=== PATIENT | female | born 1950 | race American Indian/Alaskan Native ===

== ENCOUNTER 2019-01-09 10:18 | Inpatient (IN) | payer OTHER, MEDICARE ==
[2019-01-09 10:19] VITALS: BMI 22.1
[2019-01-09 11:25] LABS: BASO # 0.1 K/uL (0.0-0.2); BASO % 1.2 % (0.0-2.0); EOS # 0.1 K/uL (0.0-0.7); EOS % 2.1 % (0.0-4.0); LYMPH # 2.7 K/uL (1.0-4.3); LYMPH % 43.9 % (20.0-40.0); MEAN CELL VOLUME 93.1 fL (81.0-99.0); MEAN CORPUSCULAR HEMOGLOBIN 31.1 pg (27.0-31.0); MEAN CORPUSCULAR HGB CONC 33.4 g/dL (33.0-37.0); MEAN PLATELET VOLUME 8.1 fL (7.2-11.7); MONO # 0.4 K/uL (0.0-0.8); MONO % 6.4 % (0.0-10.0); NEUT # 2.8 K/uL (1.8-7.0); NEUT % 46.4 % (50.0-75.0); NRBC % 0.1 % (0.0-2.0); RBC 3.86 Mil/uL (3.80-5.20); RED CELL DISTRIBUTION WIDTH 14.5 % (11.5-14.5); WHITE BLOOD COUNT 6.1 K/uL (4.8-10.8)
[2019-01-09 11:35] LABS: PROTHROMBIN TIME 11.2 SECONDS (9.7-12.2)
[2019-01-09 12:04] LABS: BLOOD UREA NITROGEN 14 mg/dL (7-17); CALCIUM 9.9 mg/dl (8.6-10.4); GFR NON-AFRICAN AMERICAN > 60
[2019-01-09 12:05] LABS: ALBUMIN 4.6 g/dL (3.5-5.0); ALT/SGPT 25 U/L (9-52); AST/SGOT 71 U/L (14-36)
[2019-01-09] MEDS ORDERED: Vancomycin 1 GM 1 GM/250 ML BAG IV STA (12:10)
[2019-01-09] MEDS ORDERED: Cefepime 1 GM in Sodium Chloride 0.9% 50 ML IVPB ONE (12:11)
--- NOTE | 2019-01-09 12:13 | C.PDOC ---
History Of Present Illness 68-year-old female presents to the ED for evaluation of left lower leg pain and swelling which began several months ago. Patient states she underwent vein surgery by Dr. Rodriguez 3 years ago. She was evaluated by him 3 days ago and was instructed to present to the ED because they are "going to drain it." Patient denies fever, chills, chest pain, shortness of breath, or recent falls/injuries. Time Seen by Provider: 01/09/19 10:28 Chief Complaint (Nursing): Lower Extremity Problem/Injury History Per: Patient History/Exam Limitations: no limitations Onset/Duration Of Symptoms: Days Current Symptoms Are (Timing): Still Present Additional History Per: Patient Past Medical History Reviewed: Historical Data, Nursing Documentation, Vital Signs Vital Signs: Last Vital Signs Temp 98.2 F 01/09/19 10:24 Pulse 98 H 01/09/19 10:24 Resp 18 01/09/19 10:24 BP 155/84 H 01/09/19 10:24 Pulse Ox 100 01/09/19 10:24 - Medical History PMH: HTN Denies: Chronic Kidney Disease Surgical History: No Surg Hx - [facility] Procedures ATTACH PEDICLE GRAFT NEC (06/11/14) EXCIS DEBRIDE OF WOUND, INFECT, OR BURN (05/16/14) NONEXCIS DEBRID OF WOUND, INFECT, OR BURN (06/11/14) OTHER SKIN & SUBQ I D (05/16/14) Family History: States: Unknown Family Hx - Social History Hx Tobacco Use: Yes Hx Alcohol Use: No Hx Substance Use: No - Immunization History Hx Tetanus Toxoid Vaccination: Yes Hx Influenza Vaccination: No Hx Pneumococcal Vaccination: No Review Of Systems Constitutional: Negative for: Fever, Chills Cardiovascular: Negative for: Chest Pain Respiratory: Negative for: Shortness of Breath Musculoskeletal: Positive for: Leg Pain (left lower leg pain and swelling, atraumatic ) Physical Exam - Physical Exam Appears: Well, Non-toxic, No Acute Distress, Other (comfortable ) Skin: Normal Color, Warm, Dry Head: Normacephalic Eye(s): bilateral: Normal Inspection Oral Mucosa: Moist Neck: Supple Cardiovascular: Rhythm Regular Respiratory: Normal Breath Sounds, No Rales, No Rhonchi, No Wheezing Gastrointestinal/Abdominal: Normal Exam, Bowel Sounds, Soft, No Tenderness Extremity: Normal ROM, No Calf Tenderness, Capillary Refill (< 2 sec all digits ), Other (left lower leg is moderately swollen, erythematous and tender to palpation. no fluctuance or induration ) Extremity: Bilateral: Normal ROM Pulses: Left Dorsalis Pedis: Normal, Right Dorsalis Pedis: Normal Neurological/Psych: Oriented x3, Normal Sensation ED Course And Treatment - Laboratory Results Result Diagrams: 01/10/19 07:26 01/10/19 07:26 Lab Results: PT 11.2 SECONDS (9.7-12.2) 01/09/19 11:11 INR 1.0 01/09/19 11:11 APTT 32 SECONDS (21-34) 01/09/19 11:11 Total Bilirubin 0.6 mg/dL (0.2-1.3) 01/09/19 11:40 AST 71 U/L (14-36) H 01/09/19 11:40 ALT 25 U/L (9-52) 01/09/19 11:40 Alkaline Phosphatase 80 U/L (38-126) 01/09/19 11:40 Total Protein 9.2 g/dL (6.3-8.3) H 01/09/19 11:40 Albumin 4.6 g/dL (3.5-5.0) 01/09/19 11:40 Globulin 4.6 gm/dL (2.2-3.9) H 01/09/19 11:40 Albumin/Globulin Ratio 1.0 (1.0-2.1) 01/09/19 11:40 O2 Sat by Pulse Oximetry: 100 (on RA) Pulse Ox Interpretation: Normal Progress Note: Blood work, venous doppler ordered and reviewed. Patient given IV Vancomycin and IV Cefepime. Doppler neg for acute DVT. - Physician Consult Information Physician Contacted: Tami Dixon Outcome Of Conversation: Discussed patient with PMD, he would like patient admitted under Dr. Antony. Spoke with Dr. Antony, who agrees with admission for left leg cellulitis. Dr. Rodriguez surgical consult entered. Disposition - Disposition Disposition: HOSPITALIZED Disposition Time: 12:11 Condition: STABLE - Clinical Impression Clinical Impression: Left leg cellulitis - Scribe Statement The provider has reviewed the documentation as recorded by the Scribe (Haleigh Dixon) Provider Attestation: All medical record entries made by the Scribe were at my direction and personally dictated by me. I have reviewed the chart and agree that the record accurately reflects my personal performance of the history, physical exam, medical decision making, and the department course for this patient. I have also personally directed, reviewed, and agree with the discharge instructions and disposition. Decision To Admit - Pt Status Changed To: Hospital Disposition Of: Inpatient - Admit Certification Admit to Inpatient:: After my assessment, the patient will require hospitalization for at least two midnights. This is because of the severity of symptoms shown, intensity of services needed, and/or the medical risk in this patient being treated as an outpatient. - InPatient: Physician Admission Certification: I certify that this patient requires 2 or more midnights of care for the following reason:: see notes - . Bed Request Type: Regular Admitting Physician: Berkley Antony Patient Diagnosis: Left leg cellulitis
[2019-01-09] MEDS ORDERED: Vancomycin 1 GM 1 GM/250 ML BAG IVPB ONE (12:23)
[2019-01-09] MEDS ORDERED: Cefepime 1 GM in Sodium Chloride 0.9% 100 ML IVPB ONE (12:30)
[2019-01-09] MEDS ORDERED: Bupivacaine 0.25% 20 ML INJ IJ ONE (13:00)
[2019-01-09] MEDS ORDERED: ceFAZolin 1 gm in NS 0 GM/0 ML BAG IVPB ONE (13:00)
[2019-01-09] MEDS ORDERED: Midazolam 2 MG/2 ML VIAL ONE (13:45)
[2019-01-09] MEDS ORDERED: Propofol 10 mg/ml Inj (20 ML) ONE (13:46)
[2019-01-09] MEDS: HYDROmorphone 0.5 mg/0.5 ml ISec IVP PRN ×4 (14:20→14:48)
--- NOTE | 2019-01-09 17:28 | CP.PCM.HP ---
Past Patient History - Past Medical History & Family History Past Medical History?: Yes - Past Social History Smoking Status: Current Some Days Smoker - CARDIAC Hx Hypertension: Yes - PULMONARY Hx Respiratory Disorders: No - NEUROLOGICAL Hx Neurological Disorder: No - HEENT Hx HEENT Problems: No - RENAL Hx Chronic Kidney Disease: No - ENDOCRINE/METABOLIC Hx Endocrine Disorders: No - HEMATOLOGICAL/ONCOLOGICAL Hx Hepatitis C: Yes - INTEGUMENTARY Hx Dermatological Problems: Yes (NON HEALING ULCER LEFT LEG) - MUSCULOSKELETAL/RHEUMATOLOGICAL Hx Falls: No - GASTROINTESTINAL Hx Gastrointestinal Disorders: Yes Hx Bowel Surgery: Yes Other/Comment: explore lap in 1965, [facility] - GENITOURINARY/GYNECOLOGICAL Hx Genitourinary Disorders: Yes Hx Reproductive Disorders: Yes Other/Comment: 13 dilatation and currettage - PSYCHIATRIC Hx Substance Use: No - SURGICAL HISTORY Hx Surgeries: Yes (EXC.AND DRAINAGE LEG ABSCESS) Hx Dilation and Curettage: Yes (13X) Hx Hysterectomy: Yes Hx Tubal Ligation: Yes - ANESTHESIA Hx Anesthesia: Yes Hx Anesthesia Reactions: No Hx Malignant Hyperthermia: No Has any member of the family had a problem w/ anesthesia?: No Meds Allergies/Adverse Reactions: Allergies Allergy/AdvReac Type Severity Reaction Status Date / Time No Known Allergies Allergy Unverified 01/09/19 10:28 Results - Vital Signs Recent Vital Signs: Last Vital Signs Temp 98.3 F 01/09/19 16:05 Pulse 75 01/09/19 16:05 Resp 20 01/09/19 16:05 BP 134/79 01/09/19 16:05 Pulse Ox 98 01/09/19 16:45 - Labs Result Diagrams: 01/09/19 11:11 01/09/19 11:40 Labs: Laboratory Results - last 24 hr 01/09/19 01/09/19 01/09/19 11:11 11:11 11:40 WBC 6.1 RBC 3.86 Hgb 12.0 Hct 35.9 MCV 93.1 MCH 31.1 H MCHC 33.4 RDW 14.5 Plt Count 329 MPV 8.1 Neut % (Auto) 46.4 L Lymph % (Auto) 43.9 H [place] % (Auto) 6.4 Eos % (Auto) 2.1 Baso % (Auto) 1.2 Neut # (Auto) 2.8 Lymph # (Auto) 2.7 [place] # (Auto) 0.4 Eos # (Auto) 0.1 Baso # (Auto) 0.1 PT 11.2 INR 1.0 APTT 32 Sodium 136 Potassium 4.7 Chloride 101 Carbon Dioxide 26 Anion Gap 14 BUN 14 Creatinine 0.8 Est GFR ( Amer) > 60 Est GFR (Non-Af Amer) > 60 Random Glucose 93 Calcium 9.9 Total Bilirubin 0.6 AST 71 H ALT 25 Alkaline Phosphatase 80 Total Protein 9.2 H Albumin 4.6 Globulin 4.6 H Albumin/Globulin Ratio 1.0
[2019-01-09] MEDS: Dextrose 5%/0.45% NS 1,000 ML IV SCH (17:38)
[2019-01-09] MEDS: Oxycodone/Acetaminophen 5/325 mg Tab PO PRN (17:54)
[2019-01-09] MEDS: Naproxen 550 mg Tab PO SCH (20:52)
--- NOTE | 2019-01-09 23:26 | CP.PCM.CON ---
History of Present Illness - History of Present Illness History of Present Illness: discussed on rounds orders written full consukt to follow Past Patient History - Past Medical History & Family History Past Medical History?: Yes - Past Social History Smoking Status: Current Some Days Smoker - CARDIAC Hx Hypertension: Yes - PULMONARY Hx Respiratory Disorders: No - NEUROLOGICAL Hx Neurological Disorder: No - HEENT Hx HEENT Problems: No - RENAL Hx Chronic Kidney Disease: No - ENDOCRINE/METABOLIC Hx Endocrine Disorders: No - HEMATOLOGICAL/ONCOLOGICAL Hx Hepatitis C: Yes - INTEGUMENTARY Hx Dermatological Problems: Yes (NON HEALING ULCER LEFT LEG) - MUSCULOSKELETAL/RHEUMATOLOGICAL Hx Falls: No - GASTROINTESTINAL Hx Gastrointestinal Disorders: Yes Hx Bowel Surgery: Yes Other/Comment: explore lap in 1965, [facility] - GENITOURINARY/GYNECOLOGICAL Hx Genitourinary Disorders: Yes Hx Reproductive Disorders: Yes Other/Comment: 13 dilatation and currettage - PSYCHIATRIC Hx Substance Use: No - SURGICAL HISTORY Hx Surgeries: Yes (EXC.AND DRAINAGE LEG ABSCESS) Hx Dilation and Curettage: Yes (13X) Hx Hysterectomy: Yes Hx Tubal Ligation: Yes - ANESTHESIA Hx Anesthesia: Yes Hx Anesthesia Reactions: No Hx Malignant Hyperthermia: No Has any member of the family had a problem w/ anesthesia?: No Meds Allergies/Adverse Reactions: Allergies Allergy/AdvReac Type Severity Reaction Status Date / Time No Known Allergies Allergy Unverified 01/09/19 10:28 - Medications Medications: Current Medications Docusate Sodium (Colace) 100 mg PO BID [facility] Last Admin: 01/09/19 17:39 Dose: 100 mg Enoxaparin Sodium (Lovenox) 30 mg SC DAILY [facility] Hydrochlorothiazide (Hydrodiuril) 25 mg PO DAILY [facility] Dextrose/Sodium Chloride (Dextrose 5%/0.45% Ns 1000 Ml) 1,000 mls @ 60 mls/hr IV .[id number] [facility] Last Admin: 01/09/19 17:38 Dose: 60 mls/hr Cefepime HCl 1 gm/ Dextrose 50 mls @ 100 mls/hr IVPB Q12H [facility]; Protocol Vancomycin/Sodium Chloride (Vancomycin 1 Gm/Ns 200 Ml) 1 gm in 200 mls @ 133.333 mls/hr IVPB Q12H [facility]; Protocol Stop: 01/15/19 01:01 Naproxen (Anaprox Ds) 550 mg PO BID [facility] Last Admin: 01/09/19 20:52 Dose: 550 mg Oxycodone/Acetaminophen (Percocet 5/325 Mg Tab) 2 tab PO Q4H PRN PRN Reason: Pain, Mild (1-3) Stop: 01/12/19 14:07 Last Admin: 01/09/19 17:54 Dose: 2 tab Pantoprazole Sodium (Protonix Inj) 40 mg IVP DAILY [facility] Results - Vital Signs Recent Vital Signs: Last Vital Signs Temp 98.3 F 01/09/19 16:05 Pulse 75 01/09/19 16:05 Resp 20 01/09/19 16:05 BP 134/79 01/09/19 16:05 Pulse Ox 98 01/09/19 16:45 - Labs Result Diagrams: 01/09/19 11:11 01/09/19 11:40 Labs: Laboratory Results - last 24 hr 01/09/19 01/09/19 01/09/19 11:11 11:11 11:40 WBC 6.1 RBC 3.86 Hgb 12.0 Hct 35.9 MCV 93.1 MCH 31.1 H MCHC 33.4 RDW 14.5 Plt Count 329 MPV 8.1 Neut % (Auto) 46.4 L Lymph % (Auto) 43.9 H [place] % (Auto) 6.4 Eos % (Auto) 2.1 Baso % (Auto) 1.2 Neut # (Auto) 2.8 Lymph # (Auto) 2.7 [place] # (Auto) 0.4 Eos # (Auto) 0.1 Baso # (Auto) 0.1 PT 11.2 INR 1.0 APTT 32 Sodium 136 Potassium 4.7 Chloride 101 Carbon Dioxide 26 Anion Gap 14 BUN 14 Creatinine 0.8 Est GFR ( Amer) > 60 Est GFR (Non-Af Amer) > 60 Random Glucose 93 Calcium 9.9 Total Bilirubin 0.6 AST 71 H ALT 25 Alkaline Phosphatase 80 Total Protein 9.2 H Albumin 4.6 Globulin 4.6 H Albumin/Globulin Ratio 1.0
[2019-01-10] MEDS: Oxycodone/Acetaminophen 5/325 mg Tab PO PRN ×5 (00:27→19:31)
[2019-01-10] MEDS: Vancomycin 1 gm/NS 200 ml 1 GM/200 ML BAG IVPB SCH ×2 (00:40→13:20)
[2019-01-10] MEDS: Dextrose 5%/0.45% NS 1,000 ML IV SCH ×2 (06:25→22:46)
--- NOTE | 2019-01-10 06:41 | OP ---
PROCEDURE DATE: 01/09/2019 PREOPERATIVE DIAGNOSIS: Abscess and phlebitis of the left leg. POSTOPERATIVE DIAGNOSIS: Septic phlebitis of the left leg. PROCEDURE PERFORMED: Wide deep excision of septic phlebitis of the left leg with partial tissue flap closure. SURGEON: Farzad Rodriguez MD ANESTHESIA: General. BLOOD LOSS: 20 mL. POSTOP CONDITION: Stable. INDICATIONS FOR SURGERY: This is a 68-year-old female, presented with a painful infected mass of her left leg, will undergo radical excision of the area with drainage of underlying abscess and debridement. DESCRIPTION OF PROCEDURE: The patient was taken to the operating room, general anesthesia administered. The left leg was prepped and draped. An elliptical incision was made surrounding the indurated area and it was completely excised into the fascia. A septic vein was encountered and surrounding pus was drained and cultured. Bleeding was controlled using a Bovie. The wound was irrigated with copious amounts of saline solution. Partial tissue flap closure was performed at the periphery. Central portion was packed open with saline gauze. The patient tolerated the procedure well, returned to recovery room in stable condition. Farzad Rodriguez MD
[2019-01-10 07:46] LABS: BASO # 0.1 K/uL (0.0-0.2); EOS % 0.5 % (0.0-4.0); HEMOGLOBIN 11.7 g/dL (11.0-16.0); LYMPH # 1.4 K/uL (1.0-4.3); MEAN CELL VOLUME 91.7 fL (81.0-99.0); MEAN CORPUSCULAR HEMOGLOBIN 31.1 pg (27.0-31.0); MEAN CORPUSCULAR HGB CONC 33.9 g/dL (33.0-37.0); MONO # 0.3 K/uL (0.0-0.8); MONO % 4.4 % (0.0-10.0); NEUT # 4.4 K/uL (1.8-7.0); NEUT % 71.1 % (50.0-75.0); RBC 3.76 Mil/uL (3.80-5.20); RED CELL DISTRIBUTION WIDTH 14.2 % (11.5-14.5); WHITE BLOOD COUNT 6.2 K/uL (4.8-10.8)
[2019-01-10 07:50] LABS: ALBUMIN 4.5 g/dL (3.5-5.0); ALT/SGPT 25 U/L (9-52); AST/SGOT 54 U/L (14-36); BLOOD UREA NITROGEN 10 mg/dL (7-17); CALCIUM 9.6 mg/dl (8.6-10.4); GFR NON-AFRICAN AMERICAN > 60
[2019-01-10] MEDS: Naproxen 550 mg Tab PO SCH ×2 (09:51→17:29)
[2019-01-10] MEDS: Enoxaparin 30 mg Syringe SC SCH (09:53)
--- NOTE | 2019-01-10 13:05 | CP.PCM.CON ---
History of Present Illness - History of Present Illness History of Present Illness: 68-year-old female presents to the ED for evaluation of left lower leg pain and swelling which began several months ago. Seen s/p drainage abscess left leg cultures pending' denies fever or chills PMH deniies DM + HTN NKDA Review of Systems - Review of Systems All systems: reviewed and no additional remarkable complaints except - Constitutional Constitutional: absent: As Per HPI, Anorexia, Chills, Daytime Sleepiness, Exces sive Sweating, Fatigue, Fever, Frequent Falls, Headache, Increased Appetite, Lethargy, Malaise, Night Sweats, Snoring, Sleep Apnea, Weight Gain, Weight Loss, Weakness, Other - EENT Eyes: absent: As Per HPI, Blind Spots, Blurred Vision, Change in Vision, Decreas ed Night Vision, Diplopia, Discharge, Dry Eye, Exophthalmos, Floaters, Irritation, Itchy Eyes, Loss of Peripheral Vision, Pain, Photophobia, Requires Corrective Lenses, Sees Flashes, Spots in Vision, Tunnel Vision, Other Visual Disturbances, Loss of Vision, Other Ears: absent: As Per HPI, Decreased Hearing, Ear Discharge, Ear Pain, Tinnitus, Abnormal Hearing, Disequilibrium, Dizziness, Other Nose/Mouth/Throat: absent: As Per HPI, Epistaxis, Nasal Congestion, Nasal Discharge, Nasal Obstruction, Nasal Trauma, Nose Pain, Post Nasal Drip, Sinus Pain, Sinus Pressure, Bleeding Gums, Change in Voice, Dental Pain, Dry Mouth, Dysphagia, Halitosis, Hoarsness, Lip Swelling, Mouth Lesions, Mouth Pain, Odynophagia, Sore Throat, Throat Swelling, Tongue Swelling, Facial Pain, Neck Pain, Neck Mass, Other - Breasts Breasts: absent: As Per HPI, Change in Shape, Mass, Pain, Nipple Discharge, Nipple Inversion, Skin Changes, Swelling, Other - Cardiovascular Cardiovascular: absent: As Per HPI, Acrocyanosis, Chest Pain, Chest Pain at Rest, Chest Pain with Activity, Claudication, Diaphoresis, Dyspnea, Dyspnea on Exertion, Edema, Irregular Heart Rhythm, Pain Radiating to Arm/Neck/Jaw, Leg Edema, Leg Ulcers, Lightheadedness, Orthopnea, Palpitations, Paroxysmal Nocturnal Dyspnea, Pedal Edema, Radiating Pain, Rapid Heart Rate, Slow Heart Rate, Syncope, Other - Respiratory Respiratory: absent: As Per HPI, Cough, Dyspnea, Hemoptysis, Dyspnea on Exertion, Wheezing, Snoring, Stridor, Pain on Inspiration, Chest Congestion, Excessive Mucous Production, Change in Mucous Color, Pain with Coughing, Other - Gastrointestinal Gastrointestinal: absent: As Per HPI, Abdominal Pain, Belching, Bloating, Change in Bowel Habits, Change in Stool Character, Coffee Ground Emesis, Constipation, Cramping, Diarrhea, Dyspepsia, Dysphagia, Early Satiety, Excessive Flatus, Fecal Incontinence, Heartburn, Hematemesis, Hematochezia, Loose Stools, Melena, Nausea, Odynophagia, Temesmus, Vomiting, Other - Genitourinary Genitourinary: absent: As Per HPI, Change in Urinary Stream, Difficulty Urinating, Dysuria, Flank Pain, Hematuria, Pyuria, Nocturia, Urinary Incontinence, Urinary Frequency, Urinary Hesitance, Urinary Urgency, Voiding Freq/Small Amts, Freq UTI, Hx Renal/Bladder Calculi, Hx /Renal Surgery, Bladder Distension, Other - Reproductive: Female Reproductive:Female: absent: As Per HPI, Amenorrhea, Amenorrhea/ Control, Currently Menstual, Cycle <21 Days, Cycle >35 Days, Cycle Variable, Menses 1-7 Days, Menses >/= 8 Days, Menses Variable, Cycle > 4 Weeks Between, No Menses for 6 Months, Heavy Menses, Light Menses, Normal Menses, Spotting Between Cycles, S/P Hysterectomy, Menopausal, Post Menopausal, Premenarche, Abnormal Vaginal Bleeding, Dysmenorrhea, Dyspareunia, Genital Lesions, Genital Pruritis, Pelvic Pain, Prolapse Symptoms, Sexual Dysfunction, Vaginal Discharge, Vaginal Dryness, Vaginal Odor, Vaginal Pruritis, Other - Menstruation Menstruation: absent: As Per HPI, Amenorrhea, Amenorrhea/ Control, Currently Menstual, Cycle <21 Days, Cycle >35 Days, Cycle Variable, Menses 1-7 Days, Menses >/= 8 Days, Menses Variable, Cycle > 4 Weeks Between, No Menses for 6 Months, Heavy Menses, Light Menses, Normal Menses, Spotting Between Cycles, S/P Hysterectomy, Menopausal, Post Menopausal, Premenarche, Abnormal Vaginal Bleeding, Dysmenorrhea, Other - Musculoskeletal Musculoskeletal: As Per HPI - Integumentary Integumentary: As Per HPI, Skin Pain, Wounds - Neurological Neurological: absent: As Per HPI, Abnormal Gait, Abnormal Hearing, Abnormal Move ments, Abnormal Speech, Behavioral Changes, Burning Sensations, Confusion, Convulsions, Disequilibrium, Dizziness, Numbness, Focal Weakness, Frequent Falls, Headaches, Lack of Coordination, Loss of Vision, Memory Loss, Paresthesias, Radicular Pain, Restless Legs, Sensory Deficit, Syncope, Tingling, Tremor, Vertigo, Weakness, Other Visual Disturbances, Other - Psychiatric Psychiatric: absent: As Per HPI, Abnormal Sleep Pattern, Anhedonia, Anxiety, Auditory Hallucinations, Behavioral Changes, Change in Appetite, Change in Libido, Confusion, Depression, Difficulty Concentrating, Hallucinations, Homicidal Ideation, Hopelessness, Irritability, Memory Loss, Mood Swings, Panic Attacks, Paranoia, Suicidal Ideation, Visual Hallucinations, Tactile Hallucinations, Other - Endocrine Endocrine: absent: As Per HPI, Change in Body Appearance, Change in Libido, Cold Intolorance, Deepening of Voice, Excessive Sweating, Fatigue, Flushing, Heat Intolorance, Increase in Ring/Shoe/Hat Size, Palpitations, Polydipsia, Polyphagia, Polyuria, Other - Hematologic/Lymphatic Hematologic: absent: As Per HPI, Easy Bleeding, Easy Bruising, Lymphadenopathy, Other Past Patient History - Past Medical History & Family History Past Medical History?: Yes - Past Social History Smoking Status: Current Some Days Smoker - CARDIAC Hx Hypertension: Yes - PULMONARY Hx Respiratory Disorders: No - NEUROLOGICAL Hx Neurological Disorder: No - HEENT Hx HEENT Problems: No - RENAL Hx Chronic Kidney Disease: No - ENDOCRINE/METABOLIC Hx Endocrine Disorders: No - HEMATOLOGICAL/ONCOLOGICAL Hx Hepatitis C: Yes - INTEGUMENTARY Hx Dermatological Problems: Yes (NON HEALING ULCER LEFT LEG) - MUSCULOSKELETAL/RHEUMATOLOGICAL Hx Falls: No - GASTROINTESTINAL Hx Gastrointestinal Disorders: Yes Hx Bowel Surgery: Yes Other/Comment: explore lap in 1965, [facility] - GENITOURINARY/GYNECOLOGICAL Hx Genitourinary Disorders: Yes Hx Reproductive Disorders: Yes Other/Comment: 13 dilatation and currettage - PSYCHIATRIC Hx Substance Use: No - SURGICAL HISTORY Hx Surgeries: Yes (EXC.AND DRAINAGE LEG ABSCESS) Hx Dilation and Curettage: Yes (13X) Hx Hysterectomy: Yes Hx Tubal Ligation: Yes - ANESTHESIA Hx Anesthesia: Yes Hx Anesthesia Reactions: No Hx Malignant Hyperthermia: No Has any member of the family had a problem w/ anesthesia?: No Meds Allergies/Adverse Reactions: Allergies Allergy/AdvReac Type Severity Reaction Status Date / Time No Known Allergies Allergy Unverified 01/09/19 10:28 - Medications Medications: Current Medications Docusate Sodium (Colace) 100 mg PO BID [facility] Last Admin: 01/10/19 09:52 Dose: 100 mg Enoxaparin Sodium (Lovenox) 30 mg SC DAILY [facility] Last Admin: 01/10/19 09:53 Dose: 30 mg Hydrochlorothiazide (Hydrodiuril) 25 mg PO DAILY [facility] Last Admin: 01/10/19 09:52 Dose: 25 mg Dextrose/Sodium Chloride (Dextrose 5%/0.45% Ns 1000 Ml) 1,000 mls @ 60 mls/hr IV .[id number] [facility] Last Admin: 01/10/19 06:25 Dose: Not Given Cefepime HCl 1 gm/ Dextrose 50 mls @ 100 mls/hr IVPB Q12H [facility]; Protocol Last Admin: 01/10/19 12:30 Dose: 100 mls/hr Vancomycin/Sodium Chloride (Vancomycin 1 Gm/Ns 200 Ml) 1 gm in 200 mls @ 133.333 mls/hr IVPB Q12H [facility]; Protocol Stop: 01/15/19 01:01 Last Admin: 01/10/19 00:40 Dose: 133.333 mls/hr Naproxen (Anaprox Ds) 550 mg PO BID [facility] Last Admin: 01/10/19 09:51 Dose: 550 mg Oxycodone/Acetaminophen (Percocet 5/325 Mg Tab) 2 tab PO Q4H PRN PRN Reason: Pain, Mild (1-3) Stop: 01/12/19 14:07 Last Admin: 01/10/19 08:53 Dose: 2 tab Pantoprazole Sodium (Protonix Inj) 40 mg IVP DAILY [facility] Last Admin: 01/10/19 09:53 Dose: 40 mg Physical Exam - Constitutional Appears: Well, Non-toxic, No Acute Distress, Chronically Ill - Head Exam Head Exam: ATRAUMATIC, NORMAL INSPECTION, NORMOCEPHALIC - Eye Exam Eye Exam: EOMI, Normal appearance, PERRL Pupil Exam: NORMAL ACCOMODATION, PERRL - ENT Exam ENT Exam: Mucous Membranes Moist, Normal Exam - Neck Exam Neck exam: Positive for: Normal Inspection - Respiratory Exam Respiratory Exam: Clear to Auscultation Bilateral, NORMAL BREATHING PATTERN - Cardiovascular Exam Cardiovascular Exam: REGULAR RHYTHM - GI/Abdominal Exam GI & Abdominal Exam: Normal Bowel Sounds, Soft. absent: Tenderness - Rectal Exam Rectal Exam: Deferred - Exam Exam: NORMAL INSPECTION (x) - Extremities Exam Extremities exam: Positive for: normal capillary refill, pedal pulses present. Negative for: normal inspection Additional comments: packed wound left leg mild cellulitis - Back Exam Back exam: NORMAL INSPECTION - Neurological Exam Neurological exam: Alert, CN II-XII Intact, Normal Gait, Oriented x3, Reflexes Normal - Psychiatric Exam Psychiatric exam: Normal Affect, Normal Mood - Skin Skin Exam: Dry, Intact, Normal Color, Warm Results - Vital Signs Recent Vital Signs: Last Vital Signs Temp 98.4 F 01/10/19 08:51 Pulse 82 01/10/19 08:51 Resp 20 01/10/19 08:51 BP 117/72 01/10/19 08:51 Pulse Ox 99 01/10/19 08:51 - Labs Result Diagrams: 01/10/19 07:26 01/10/19 07:26 Labs: Laboratory Results - last 24 hr 01/10/19 01/10/19 07:26 07:26 WBC 6.2 RBC 3.76 L Hgb 11.7 Hct 34.5 MCV 91.7 MCH 31.1 H MCHC 33.9 RDW 14.2 Plt Count 342 MPV 8.0 Neut % (Auto) 71.1 Lymph % (Auto) 23.0 [place] % (Auto) 4.4 Eos % (Auto) 0.5 Baso % (Auto) 1.0 Neut # (Auto) 4.4 Lymph # (Auto) 1.4 [place] # (Auto) 0.3 Eos # (Auto) 0.0 Baso # (Auto) 0.1 Sodium 134 Potassium 4.4 Chloride 98 Carbon Dioxide 29 Anion Gap 12 BUN 10 Creatinine 0.7 Est GFR ( Amer) > 60 Est GFR (Non-Af Amer) > 60 Random Glucose 133 H D Calcium 9.6 Total Bilirubin 0.6 AST 54 H D ALT 25 Alkaline Phosphatase 80 Total Protein 8.8 H Albumin 4.5 Globulin 4.3 H Albumin/Globulin Ratio 1.0 Assessment & Plan (1) Abscess of left leg Status: Acute - Assessment and Plan (Free Text) Assessment: s/p I and D await cultures cont IV antibiottics
--- NOTE | 2019-01-10 13:07 | VASCLAB ---
Date of service: 01/09/2019 PROCEDURE: Left Lower Extremity Venous Duplex Exam. HISTORY: Left leg swelling, pain r/o DVT PRIORS: None. TECHNIQUE: Left common femoral, femoral, popliteal and posterior tibial, peroneal and great saphenous veins were evaluated. Flow was assessed with color Doppler, compressibility, assessment of phasic flow and augmentation response. Report prepared by SVETLANA Martinez FINDINGS: LEFT: 1. Common Femoral Vein: 1.1. Compressibility - Fully compressible: Thrombus - None : Flow - Phasic: Augmentation -Normal: Reflux - None. 2. Femoral Vein: 2.1. Compressibility - Fully compressible: Thrombus - None: Flow - Phasic: Augmentation -Normal: Reflux - None. 3. Popliteal Vein: 3.1. Compressibility - Fully compressible: Thrombus - None: Flow - Phasic: Augmentation -Normal: Reflux - None. 4. Posterior Tibial Vein: 4.1. Compressibility - Fully compressible: Thrombus - None: Flow - Phasic: Augmentation -Normal: Reflux - None. 5. Peroneal Vein: 5.1. Compressibility - Fully compressible: Thrombus - None: Flow - Phasic: Augmentation -Normal: Reflux - None. 6. Great Saphenous Vein: 6.1. Not visualized. OTHER FINDINGS: Normal venous flow noted in the right common femoral vein. IMPRESSION: No evidence of deep or superficial vein thrombosis of the left lower extremity with excellent venous flow. Normal valve function noted of the left side.
[2019-01-10] MEDS ORDERED: Lidocaine Hydrochloride 20 ML INJ ONE (14:56)
[2019-01-10] MEDS ORDERED: Lidocaine Hydrochloride 15 ML INJ ONE (14:56)
[2019-01-10] MEDS ORDERED: Bupivacaine 0.25% 20 ML INJ IJ ONE (14:57)
[2019-01-10] MEDS ORDERED: Morphine 1 mg/ml preservative-free Inj(Duramorph) ONE (15:24)
[2019-01-10] MEDS ORDERED: Lactated Ringer's 500 ML IV SCH (16:15)
--- NOTE | 2019-01-10 16:57 | CP.PCM.PN ---
Subjective - Date & Time of Evaluation Date of Evaluation: 01/10/19 Time of Evaluation: 16:57 Objective - Vital Signs/Intake and Output Vital Signs (last 24 hours): Temp Pulse Resp BP Pulse Ox 98.2 F 79 13 139/81 99 01/10/19 16:30 01/10/19 16:30 01/10/19 16:30 01/10/19 16:30 01/10/19 16:30 Intake and Output: 01/10/19 01/10/19 06:59 18:59 Intake Total 910 210 Balance 910 210 - Medications Medications: Current Medications Docusate Sodium (Colace) 100 mg PO BID [facility] Last Admin: 01/10/19 09:52 Dose: 100 mg Enoxaparin Sodium (Lovenox) 30 mg SC DAILY [facility] Last Admin: 01/10/19 09:53 Dose: 30 mg Hydrochlorothiazide (Hydrodiuril) 25 mg PO DAILY [facility] Last Admin: 01/10/19 09:52 Dose: 25 mg Dextrose/Sodium Chloride (Dextrose 5%/0.45% Ns 1000 Ml) 1,000 mls @ 60 mls/hr IV .[id number] [facility] Last Admin: 01/10/19 06:25 Dose: Not Given Cefepime HCl 1 gm/ Dextrose 50 mls @ 100 mls/hr IVPB Q12H [facility]; Protocol Last Admin: 01/10/19 12:30 Dose: 100 mls/hr Vancomycin/Sodium Chloride (Vancomycin 1 Gm/Ns 200 Ml) 1 gm in 200 mls @ 133.333 mls/hr IVPB Q12H [facility]; Protocol Stop: 01/15/19 01:01 Last Admin: 01/10/19 13:20 Dose: 133.333 mls/hr Lactated Ringer's (Lactated Ringer's 500ml) 500 mls @ 75 mls/hr IV .Q6H40M [facility] Stop: 01/10/19 17:30 Naproxen (Anaprox Ds) 550 mg PO BID [facility] Last Admin: 01/10/19 09:51 Dose: 550 mg Ondansetron HCl (Zofran Inj) 4 mg IVP ONCE PRN PRN Reason: Nausea/Vomiting Stop: 01/10/19 18:03 Oxycodone/Acetaminophen (Percocet 5/325 Mg Tab) 2 tab PO Q4H PRN PRN Reason: Pain, Mild (1-3) Stop: 01/12/19 14:07 Last Admin: 01/10/19 14:11 Dose: 2 tab Pantoprazole Sodium (Protonix Inj) 40 mg IVP DAILY [facility] Last Admin: 01/10/19 09:53 Dose: 40 mg Pneumococcal Polyvalent Vaccine (Pneumovax 23 Vaccine) 0.5 ml IM .ONCE ONE Stop: 01/12/19 10:01 - Labs Labs: 01/10/19 07:26 01/10/19 07:26 PT 11.2 SECONDS (9.7-12.2) 01/09/19 11:11 INR 1.0 01/09/19 11:11 APTT 32 SECONDS (21-34) 01/09/19 11:11
[2019-01-11] MEDS: Vancomycin 1 gm/NS 200 ml 1 GM/200 ML BAG IVPB SCH ×2 (00:52→14:39)
[2019-01-11] MEDS: Oxycodone/Acetaminophen 5/325 mg Tab PO PRN ×3 (01:06→21:25)
--- NOTE | 2019-01-11 03:17 | CARD ---
APPROVED REPORT Date of service: 01/09/2019 EKG Measurement Heart [id number] <Conclusion> Normal sinus rhythm Normal ECG
--- NOTE | 2019-01-11 06:52 | OP ---
PROCEDURE DATE: 01/10/2019 PREOPERATIVE DIAGNOSIS: Abscess and open wound of the left leg. POSTOPERATIVE DIAGNOSIS: Abscess and open wound of the left leg. PROCEDURE PERFORMED: Change of packing under anesthesia with debridement, re-drainage of abscess, and partial tissue flap closure. SURGEON: Farzad Rodriguez MD. ANESTHESIA: Local. ESTIMATED BLOOD LOSS: 10 mL. POSTOPERATIVE CONDITION: Stable. INDICATIONS FOR SURGERY: This is a 68-year-old female, presented yesterday with an abscess and an infected mass of her left leg. She will undergo removal of the mass, drainage of the underlying abscess, and a partial closure was left with an open wound. area of great tenderness and pain that the patient was taken back to the OR for change of packing under anesthesia. DESCRIPTION OF PROCEDURE: The patient was taken to the operating room and placed in the supine position. The packing was removed and the wound was prepped and draped with Betadine. Then, 1% lidocaine was injected subcutaneously to anesthetize the wound. It was then aggressively debrided, pulse irrigated, any remaining collections were drained and cultured. Bleeding was controlled using a Bovie and larger blood vessel was repaired. Partial tissue flap closure performed by widely undermining, making counterincisions and using heavy Monocryl. The central portion was packed open with saline gauze. The patient tolerated the procedure well, returned to recovery room in stable condition. Farzad Rodriguez MD
[2019-01-11] MEDS: Naproxen 550 mg Tab PO SCH ×2 (09:44→17:43)
[2019-01-11] MEDS: Enoxaparin 30 mg Syringe SC SCH (09:45)
[2019-01-11] MEDS ORDERED: Midazolam 2 MG/2 ML VIAL ONE (11:53)
[2019-01-11] MEDS ORDERED: Propofol 10 mg/ml Inj (20 ML) ONE (11:59)
[2019-01-11] MEDS ORDERED: Vancomycin 1 gm/D5W 200 ml 1 GM/200 ML BAG IVPB ONE (12:00)
[2019-01-11] MEDS ORDERED: Bupivacaine 0.25% 20 ML INJ IJ ONE (12:00)
[2019-01-11] MEDS ORDERED: HYDROmorphone 0.5 mg/0.5 ml ISec IVP PRN (12:33)
[2019-01-11] MEDS: Dextrose 5%/0.45% NS 1,000 ML IV SCH (14:03)
--- NOTE | 2019-01-11 16:02 | CP.PCM.PN ---
Subjective - Date & Time of Evaluation Date of Evaluation: 01/11/19 Time of Evaluation: 09:00 - Subjective Subjective: NAD noted seen on rounds orders written labs reviewed no new complaints Objective - Vital Signs/Intake and Output Vital Signs (last 24 hours): Temp Pulse Resp BP Pulse Ox 98.2 F 75 20 133/81 98 01/11/19 07:00 01/11/19 07:00 01/11/19 07:00 01/11/19 07:00 01/11/19 07:00 Intake and Output: 01/11/19 01/11/19 06:59 18:59 Intake Total 1390 400 Balance 1390 400 - Medications Medications: Current Medications Docusate Sodium (Colace) 100 mg PO BID [facility] Last Admin: 01/11/19 09:44 Dose: Not Given Enoxaparin Sodium (Lovenox) 30 mg SC DAILY [facility] Last Admin: 01/11/19 09:45 Dose: Not Given Hydrochlorothiazide (Hydrodiuril) 25 mg PO DAILY [facility] Last Admin: 01/11/19 09:49 Dose: 25 mg Dextrose/Sodium Chloride (Dextrose 5%/0.45% Ns 1000 Ml) 1,000 mls @ 60 mls/hr IV .[id number] [facility] Last Admin: 01/11/19 14:03 Dose: 60 mls/hr Cefepime HCl 1 gm/ Dextrose 50 mls @ 100 mls/hr IVPB Q12H [facility]; Protocol Last Admin: 01/11/19 13:10 Dose: 50 mls Vancomycin/Sodium Chloride (Vancomycin 1 Gm/Ns 200 Ml) 1 gm in 200 mls @ 133.333 mls/hr IVPB Q12H [facility]; Protocol Stop: 01/15/19 01:01 Last Admin: 01/11/19 14:39 Dose: Not Given Naproxen (Anaprox Ds) 550 mg PO BID [facility] Last Admin: 01/11/19 09:44 Dose: Not Given Oxycodone/Acetaminophen (Percocet 5/325 Mg Tab) 2 tab PO Q4H PRN PRN Reason: Pain, Mild (1-3) Stop: 01/12/19 14:07 Last Admin: 01/11/19 14:00 Dose: 2 tab Pantoprazole Sodium (Protonix Inj) 40 mg IVP DAILY [facility] Last Admin: 01/11/19 09:49 Dose: 40 mg Pneumococcal Polyvalent Vaccine (Pneumovax 23 Vaccine) 0.5 ml IM .ONCE ONE Stop: 01/12/19 10:01 - Labs Labs: 01/10/19 07:26 01/10/19 07:26 PT 11.2 SECONDS (9.7-12.2) 01/09/19 11:11 INR 1.0 01/09/19 11:11 APTT 32 SECONDS (21-34) 01/09/19 11:11 - Constitutional Appears: Non-toxic, Chronically Ill - Head Exam Head Exam: ATRAUMATIC, NORMAL INSPECTION, NORMOCEPHALIC - Eye Exam Eye Exam: EOMI, Normal appearance, PERRL Pupil Exam: NORMAL ACCOMODATION, PERRL - ENT Exam ENT Exam: Mucous Membranes Moist, Normal Exam - Neck Exam Neck Exam: Full ROM, Normal Inspection. absent: Lymphadenopathy - Respiratory Exam Respiratory Exam: Clear to Ausculation Bilateral, NORMAL BREATHING PATTERN - Cardiovascular Exam Cardiovascular Exam: REGULAR RHYTHM, +S1, +S2. absent: Murmur - GI/Abdominal Exam GI & Abdominal Exam: Soft, Normal Bowel Sounds. absent: Tenderness - Rectal Exam Rectal Exam: Deferred - Exam Exam: NORMAL INSPECTION - Extremities Exam Extremities Exam: Full ROM, Normal Capillary Refill, Normal Inspection. absent: Joint Swelling, Pedal Edema - Back Exam Back Exam: NORMAL INSPECTION - Neurological Exam Neurological Exam: Alert, Awake, CN II-XII Intact, Oriented x3. absent: Normal Gait (xxxxxxxxxxx) Neuro motor strength exam: Left Upper Extremity: 5, Right Upper Extremity: 5, Left Lower Extremity: 5, Right Lower Extremity: 5 - Psychiatric Exam Psychiatric exam: Normal Affect, Normal Mood - Skin Skin Exam: Dry, Intact, Normal Color, Warm Assessment and Plan (1) Abscess of left leg Status: Acute - Assessment and Plan (Free Text) Assessment: stabkle s/p I and D left leg abscess await cultures cont IV antibiotics
[2019-01-12] MEDS: Vancomycin 1 gm/NS 200 ml 1 GM/200 ML BAG IVPB SCH ×2 (00:23→14:33)
[2019-01-12] MEDS: Oxycodone/Acetaminophen 5/325 mg Tab PO PRN ×2 (02:31→18:36)
--- NOTE | 2019-01-12 06:52 | OP ---
PROCEDURE DATE: 01/11/2019 PREOPERATIVE DIAGNOSIS: Infected wound of the left leg. POSTOPERATIVE DIAGNOSIS: Infected wound of the left leg. PROCEDURE PERFORMED: Debridement, partial closure of infected wound of the left leg with re-drainage of leg abscess. SURGEON: Farzad Rodriguez MD ANESTHESIA: General. BLOOD LOSS: 20 mL. POSTOP CONDITION: Stable. INDICATIONS FOR SURGERY: This is a 68-year-old female with a large open wound of the left leg, status post removal of septic phlebitis and an abscess who now is taken back to the OR for change of packing under anesthesia and possible closure. DESCRIPTION OF PROCEDURE: The patient was taken to the operating room, general anesthesia administered. The dressing was removed. There was a fair amount of vigorous bleeding. As soon as this was done, the wound was quickly prepped and draped, bleeding blood vessel was then controlled and stitched with a 7-0 Prolene, the remainder was closed using a Bovie. The wound was then pulse irrigated with saline and Kantrex solution, full-thickness tissue flaps were raised. Counterincisions were made and a partial tissue flap closure was performed. The central portion of the wound was packed open with saline gauze. The patient tolerated the procedure well, returned to recovery room in stable condition. Farzad Rodriguez MD
[2019-01-12 08:24] LABS: HEPATITIS B SURFACE AG Negative (NEGATIVE)
[2019-01-12 08:30] LABS: HEPATITIS A IGM NEGATIVE (NEGATIVE); HEPATITIS B CORE AB NEGATIVE (NEGATIVE)
[2019-01-12] MEDS: Dextrose 5%/0.45% NS 1,000 ML IV SCH (09:00)
[2019-01-12] MEDS: Enoxaparin 30 mg Syringe SC SCH (09:15)
[2019-01-12] MEDS: Naproxen 550 mg Tab PO SCH ×2 (09:16→17:17)
[2019-01-12 09:56] LABS: HEPATITIS C ANTIBODY REACTIVE (NEGATIVE)
[2019-01-12] MEDS ORDERED: Pneumococcal 23-Valent Vaccine IM ONE (10:00)
[2019-01-12] MEDS ORDERED: Propofol 10 mg/ml Inj (20 ML) ONE (11:47)
[2019-01-12] MEDS ORDERED: Midazolam 2 MG/2 ML VIAL ONE (11:47)
[2019-01-12] MEDS ORDERED: Vancomycin 1 gm/D5W 200 ml 1 GM/200 ML BAG IVPB ONE (12:11)
[2019-01-12] MEDS ORDERED: Bupivacaine 0.25% 20 ML INJ IJ ONE (12:14)
[2019-01-12] MEDS ORDERED: Bacitracin 500 Units/gm Oint Foilpak UD ONE (12:16)
[2019-01-12] MEDS ORDERED: HYDROmorphone 0.5 mg/0.5 ml ISec IVP PRN (12:29)
[2019-01-12] MEDS ORDERED: Lactated Ringer's 1,000 ML IV SCH (12:30)
[2019-01-12 14:13] VITALS: RESP 20
--- NOTE | 2019-01-12 17:53 | CP.PCM.PN ---
Subjective - Date & Time of Evaluation Date of Evaluation: 01/12/19 Time of Evaluation: 08:00 - Subjective Subjective: s/p I and D iv rx in progress Objective - Vital Signs/Intake and Output Vital Signs (last 24 hours): Temp Pulse Resp BP Pulse Ox 98.3 F 79 20 123/62 96 01/12/19 16:00 01/12/19 16:00 01/12/19 16:00 01/12/19 16:00 01/12/19 16:00 Intake and Output: 01/12/19 01/12/19 06:59 18:59 Intake Total 1310 1510 Output Total 450 Balance 1310 1060 - Medications Medications: Current Medications Docusate Sodium (Colace) 100 mg PO BID [facility] Last Admin: 01/12/19 17:17 Dose: 100 mg Enoxaparin Sodium (Lovenox) 30 mg SC DAILY [facility] Last Admin: 01/12/19 09:15 Dose: Not Given Hydrochlorothiazide (Hydrodiuril) 25 mg PO DAILY [facility] Last Admin: 01/12/19 09:16 Dose: 25 mg Cefepime HCl 1 gm/ Dextrose 50 mls @ 100 mls/hr IVPB Q12H [facility]; Protocol Last Admin: 01/12/19 14:32 Dose: 100 mls/hr Vancomycin/Sodium Chloride (Vancomycin 1 Gm/Ns 200 Ml) 1 gm in 200 mls @ 133.333 mls/hr IVPB Q12H [facility]; Protocol Stop: 01/15/19 01:01 Last Admin: 01/12/19 14:33 Dose: Not Given Naproxen (Anaprox Ds) 550 mg PO BID [facility] Last Admin: 01/12/19 17:17 Dose: 550 mg Pantoprazole Sodium (Protonix Inj) 40 mg IVP DAILY [facility] Last Admin: 01/12/19 09:16 Dose: 40 mg - Labs Labs: 01/10/19 07:26 01/10/19 07:26 PT 11.2 SECONDS (9.7-12.2) 01/09/19 11:11 INR 1.0 01/09/19 11:11 APTT 32 SECONDS (21-34) 01/09/19 11:11 - Constitutional Appears: Well, Non-toxic, Chronically Ill - Head Exam Head Exam: ATRAUMATIC, NORMAL INSPECTION, NORMOCEPHALIC - Eye Exam Eye Exam: EOMI, Normal appearance, PERRL Pupil Exam: NORMAL ACCOMODATION, PERRL - ENT Exam ENT Exam: Mucous Membranes Moist, Normal Exam - Neck Exam Neck Exam: Full ROM, Normal Inspection. absent: Lymphadenopathy - Respiratory Exam Respiratory Exam: Clear to Ausculation Bilateral, NORMAL BREATHING PATTERN - Cardiovascular Exam Cardiovascular Exam: REGULAR RHYTHM, +S1, +S2. absent: Murmur - GI/Abdominal Exam GI & Abdominal Exam: Soft, Normal Bowel Sounds. absent: Tenderness - Rectal Exam Rectal Exam: Deferred - Exam Exam: NORMAL INSPECTION - Extremities Exam Extremities Exam: Full ROM, Normal Capillary Refill, Normal Inspection. absent: Joint Swelling, Pedal Edema - Back Exam Back Exam: NORMAL INSPECTION - Neurological Exam Neurological Exam: Alert, Awake, CN II-XII Intact, Normal Gait, Oriented x3 - Psychiatric Exam Psychiatric exam: Normal Affect, Normal Mood - Skin Skin Exam: Dry, Intact, Normal Color, Warm Additional comments: wound left leg same - dressing in place Assessment and Plan (1) Abscess of left leg Status: Acute - Assessment and Plan (Free Text) Assessment: cont wound care and IV antibiotics will need REGAN
--- NOTE | 2019-01-12 18:02 | CP.PCM.PN ---
Subjective - Date & Time of Evaluation Date of Evaluation: 01/12/19 Time of Evaluation: 08:00 Objective - Vital Signs/Intake and Output Vital Signs (last 24 hours): Temp Pulse Resp BP Pulse Ox 98.3 F 79 20 123/62 96 01/12/19 16:00 01/12/19 16:00 01/12/19 16:00 01/12/19 16:00 01/12/19 16:00 Intake and Output: 01/12/19 01/12/19 06:59 18:59 Intake Total 1310 1510 Output Total 450 Balance 1310 1060 - Medications Medications: Current Medications Docusate Sodium (Colace) 100 mg PO BID [facility] Last Admin: 01/12/19 17:17 Dose: 100 mg Enoxaparin Sodium (Lovenox) 30 mg SC DAILY [facility] Last Admin: 01/12/19 09:15 Dose: Not Given Hydrochlorothiazide (Hydrodiuril) 25 mg PO DAILY [facility] Last Admin: 01/12/19 09:16 Dose: 25 mg Cefepime HCl 1 gm/ Dextrose 50 mls @ 100 mls/hr IVPB Q12H [facility]; Protocol Last Admin: 01/12/19 14:32 Dose: 100 mls/hr Vancomycin/Sodium Chloride (Vancomycin 1 Gm/Ns 200 Ml) 1 gm in 200 mls @ 133.3 33 mls/hr IVPB Q12H [facility]; Protocol Stop: 01/15/19 01:01 Last Admin: 01/12/19 14:33 Dose: Not Given Naproxen (Anaprox Ds) 550 mg PO BID [facility] Last Admin: 01/12/19 17:17 Dose: 550 mg Pantoprazole Sodium (Protonix Inj) 40 mg IVP DAILY [facility] Last Admin: 01/12/19 09:16 Dose: 40 mg - Labs Labs: 01/10/19 07:26 01/10/19 07:26 PT 11.2 SECONDS (9.7-12.2) 01/09/19 11:11 INR 1.0 01/09/19 11:11 APTT 32 SECONDS (21-34) 01/09/19 11:11
--- NOTE | 2019-01-12 18:02 | CP.PCM.PN ---
Subjective - Date & Time of Evaluation Date of Evaluation: 01/11/19 Time of Evaluation: 22:00 Objective - Vital Signs/Intake and Output Vital Signs (last 24 hours): Temp Pulse Resp BP Pulse Ox 98.3 F 79 20 123/62 96 01/12/19 16:00 01/12/19 16:00 01/12/19 16:00 01/12/19 16:00 01/12/19 16:00 Intake and Output: 01/12/19 01/12/19 06:59 18:59 Intake Total 1310 1510 Output Total 450 Balance 1310 1060 - Medications Medications: Current Medications Docusate Sodium (Colace) 100 mg PO BID [facility] Last Admin: 01/12/19 17:17 Dose: 100 mg Enoxaparin Sodium (Lovenox) 30 mg SC DAILY [facility] Last Admin: 01/12/19 09:15 Dose: Not Given Hydrochlorothiazide (Hydrodiuril) 25 mg PO DAILY [facility] Last Admin: 01/12/19 09:16 Dose: 25 mg Cefepime HCl 1 gm/ Dextrose 50 mls @ 100 mls/hr IVPB Q12H [facility]; Protocol Last Admin: 01/12/19 14:32 Dose: 100 mls/hr Vancomycin/Sodium Chloride (Vancomycin 1 Gm/Ns 200 Ml) 1 gm in 200 mls @ 133.3 33 mls/hr IVPB Q12H [facility]; Protocol Stop: 01/15/19 01:01 Last Admin: 01/12/19 14:33 Dose: Not Given Naproxen (Anaprox Ds) 550 mg PO BID [facility] Last Admin: 01/12/19 17:17 Dose: 550 mg Pantoprazole Sodium (Protonix Inj) 40 mg IVP DAILY [facility] Last Admin: 01/12/19 09:16 Dose: 40 mg - Labs Labs: 01/10/19 07:26 01/10/19 07:26 PT 11.2 SECONDS (9.7-12.2) 01/09/19 11:11 INR 1.0 01/09/19 11:11 APTT 32 SECONDS (21-34) 01/09/19 11:11
[2019-01-13] MEDS: Vancomycin 1 gm/NS 200 ml 1 GM/200 ML BAG IVPB SCH (01:59)
[2019-01-13] MEDS: Oxycodone/Acetaminophen 5/325 mg Tab PO PRN ×2 (02:11→09:52)
--- NOTE | 2019-01-13 05:59 | OP ---
PROCEDURE DATE: 01/12/2019 PREOPERATIVE DIAGNOSIS: Infected mass of the left leg, status post removal and debridement. POSTOPERATIVE DIAGNOSIS: Infected mass of the left leg, status post removal and debridement. PROCEDURE PERFORMED: Debridement, reexcision of infected mass with advancement flap closure and pulse irrigation. SURGEON: Farzad Rodriguez MD ANESTHESIA: General. BLOOD LOSS: 30 mL. POSTOPERATIVE CONDITION: Stable. INDICATIONS FOR SURGERY: A 68-year-old female taken back to the OR on a staged procedure. She had an abscess and infected mass of the leg which was debrided and removed and partially closed. Today, she presents for debridement and full closure. DESCRIPTION OF PROCEDURE: The patient taken to the operating room. General anesthesia was administered. The left leg was prepped and draped. The wound was reexcised down to good clean tissue. Bleeding was controlled using the Bovie. Larger blood vessels were repaired and the wound was pulse irrigated. Advancement flaps were raised. Counterincisions were made and an advancement flap closure was performed with multiple layers of 2-0 Monocryl and skin clips. The patient tolerated the procedure well and returned to recovery room in stable condition. Farzad Rodriguez MD
[2019-01-13 08:32] VITALS: BP 132/72; PULSE 76; TEMP 98.5; O2SAT 96
[2019-01-13] MEDS: Naproxen 550 mg Tab PO SCH (10:10)
[2019-01-13] MEDS: Enoxaparin 30 mg Syringe SC SCH (10:12)
--- NOTE | 2019-01-13 14:30 | CP.PCM.PN ---
Subjective - Date & Time of Evaluation Date of Evaluation: 01/13/19 Time of Evaluation: 09:00 - Subjective Subjective: seen and examined on rounds no new complaints MOJGAN rx in progress labs reviewed orders signed Objective - Vital Signs/Intake and Output Vital Signs (last 24 hours): Temp Pulse Resp BP Pulse Ox 98.5 F 76 20 132/72 96 01/13/19 08:30 01/13/19 08:30 01/13/19 08:30 01/13/19 08:30 01/13/19 08:30 Intake and Output: 01/13/19 01/13/19 06:59 18:59 Intake Total 1500 300 Output Total 1 Balance 1500 299 - Medications Medications: Current Medications Docusate Sodium (Colace) 100 mg PO BID [facility] Last Admin: 01/13/19 10:10 Dose: 100 mg Enoxaparin Sodium (Lovenox) 30 mg SC DAILY [facility] Last Admin: 01/13/19 10:12 Dose: 30 mg Hydrochlorothiazide (Hydrodiuril) 25 mg PO DAILY [facility] Last Admin: 01/13/19 10:11 Dose: 25 mg Naproxen (Anaprox Ds) 550 mg PO BID [facility] Last Admin: 01/13/19 10:10 Dose: 550 mg Oxycodone/Acetaminophen (Percocet 5/325 Mg Tab) 2 tab PO Q6H PRN PRN Reason: Pain, Mild (1-3) Stop: 01/15/19 18:27 Last Admin: 01/13/19 09:52 Dose: 2 tab Pantoprazole Sodium (Protonix Ec Tab) 40 mg PO DAILY [facility] - Labs Labs: 01/10/19 07:26 01/10/19 07:26 PT 11.2 SECONDS (9.7-12.2) 01/09/19 11:11 INR 1.0 01/09/19 11:11 APTT 32 SECONDS (21-34) 01/09/19 11:11 - Constitutional Appears: Non-toxic, Chronically Ill - Head Exam Head Exam: NORMOCEPHALIC - Eye Exam Eye Exam: absent: Scleral icterus - ENT Exam ENT Exam: Mucous Membranes Dry - Neck Exam Neck Exam: absent: Lymphadenopathy - Respiratory Exam Respiratory Exam: Decreased Breath Sounds - Cardiovascular Exam Cardiovascular Exam: REGULAR RHYTHM - GI/Abdominal Exam GI & Abdominal Exam: Distended, Soft - Rectal Exam Rectal Exam: Deferred - Exam Exam: NORMAL INSPECTION - Extremities Exam Extremities Exam: absent: Calf Tenderness, Normal Inspection, Pedal Edema - Back Exam Back Exam: absent: CVA tenderness (L), CVA tenderness (R) Assessment and Plan (1) Abscess of left leg Status: Acute - Assessment and Plan (Free Text) Assessment: cont wound care out pt rx to cont
--- NOTE | 2019-01-13 16:46 | CP.PCM.DIS ---
Provider - Provider Date of Admission: 01/09/19 12:11 Attending physician: Berkley Antony MD Consults: 01/09/19 12:12 Physician Consult Stat Comment: LEFT LEG CELLULITIS Consulting Provider: Farzad Rodriguez Consulting Physician: Farzad Rodriguez Reason for Consult: SURGERY 01/09/19 14:12 Case Management Referral Routine Comment: Physician Instructions: Reason For Exam: Rehab Placement Reason for Referral: Discharge Planning 01/09/19 14:13 Infectious Disease Consult Routine Comment: Consulting Provider: Edgar Gunn Consulting Physician: Edgar Gunn Reason for Consult: sepic phlebitis R leg 01/09/19 17:29 Physician Consult Routine Comment: Consulting Provider: Edgar Gunn Consulting Physician: Edgar Gunn Reason for Consult: Cellulitis 01/12/19 12:22 Discharge Planning [Case Management Referral] Routine Comment: Physician Instructions: Reason For Exam: Arrange home PT Reason for Referral: Discharge Planning Time Spent in preparation of Discharge (in minutes): 25 Hospital Course - Lab Results Lab Results: Micro Results 01/10/19 17:18 Leg - Left Gram Stain - Final 01/10/19 17:18 Leg - Left Wound Culture - Final No growth. 01/09/19 13:29 Blood Blood Culture - Preliminary NO GROWTH AFTER 4 DAYS 01/09/19 13:29 Blood Blood Culture - Preliminary NO GROWTH AFTER 4 DAYS 01/11/19 14:20 Other: Please Indicate Gram Stain - Final 01/11/19 14:20 Other: Please Indicate Tissue Culture - Preliminary NO GROWTH AFTER 48 HOURS 01/09/19 15:40 Calf - Left Gram Stain - Final 01/09/19 15:40 Calf - Left Wound Culture - Final No growth. Most Recent Lab Values WBC 6.2 K/uL (4.8-10.8) 01/10/19 07:26 RBC 3.76 Mil/uL (3.80-5.20) L 01/10/19 07:26 Hgb 11.7 g/dL (11.0-16.0) 01/10/19 07:26 Hct 34.5 % (34.0-47.0) 01/10/19 07:26 MCV 91.7 fL (81.0-99.0) 01/10/19 07:26 MCH 31.1 pg (27.0-31.0) H 01/10/19 07:26 MCHC 33.9 g/dL (33.0-37.0) 01/10/19 07: RDW 14.2 % (11.5-14.5) 01/10/19 07: Plt Count 342 K/uL (130-400) 01/10/19 07:26 MPV 8.0 fL (7.2-11.7) 01/10/19 07: Neut % (Auto) 71.1 % (50.0-75.0) 01/10/19 07: Lymph % (Auto) 23.0 % (20.0-40.0) 01/10/19 07: Petroleum % (Auto) 4.4 % (0.0-10.0) 01/10/19 07: Eos % (Auto) 0.5 % (0.0-4.0) 01/10/19 07: Baso % (Auto) 1.0 % (0.0-2.0) 01/10/19 07: Neut # (Auto) 4.4 K/uL (1.8-7.0) 01/10/19 07: Lymph # (Auto) 1.4 K/uL (1.0-4.3) 01/10/19 07:26 Petroleum # (Auto) 0.3 K/uL (0.0-0.8) 01/10/19 07:26 Eos # (Auto) 0.0 K/uL (0.0-0.7) 01/10/19 07: Baso # (Auto) 0.1 K/uL (0.0-0.2) 01/10/19 07:26 PT 11.2 SECONDS (9.7-12.2) 01/09/19 11:11 INR 1.0 01/09/19 11:11 APTT 32 SECONDS (21-34) 01/09/19 11:11 Sodium 134 mmol/L (132-148) 01/10/19 07:26 Potassium 4.4 mmol/L (3.6-5.2) 01/10/19 07:26 Chloride 98 mmol/L (98-107) 01/10/19 07:26 Carbon Dioxide 29 mmol/L (22-30) 01/10/19 07:26 Anion Gap 12 (10-20) 01/10/19 07:26 BUN 10 mg/dL (7-17) 01/10/19 07:26 Creatinine 0.7 mg/dL (0.7-1.2) 01/10/19 07:26 Est GFR ( Amer) > 60 01/10/19 07:26 Est GFR (Non-Af Amer) > 60 01/10/19 07:26 Random Glucose 133 mg/dL (65-105) H D 01/10/19 07:26 Hemoglobin A1c 6.1 % (4.2-6.5) 01/12/19 07:19 Calcium 9.6 mg/dl (8.6-10.4) 01/10/19 07:26 Total Bilirubin 0.6 mg/dL (0.2-1.3) 01/10/19 07:26 AST 54 U/L (14-36) H D 01/10/19 07:26 ALT 25 U/L (9-52) 01/10/19 07:26 Alkaline Phosphatase 80 U/L (38-126) 01/10/19 07:26 Total Protein 8.8 g/dL (6.3-8.3) H 01/10/19 07:26 Albumin 4.5 g/dL (3.5-5.0) 01/10/19 07:26 Globulin 4.3 gm/dL (2.2-3.9) H 01/10/19 07:26 Albumin/Globulin Ratio 1.0 (1.0-2.1) 01/10/19 07:26 Hepatitis A IgM Ab Negative (NEGATIVE) 01/12/19 07:19 Hep Bs Antigen Negative (NEGATIVE) 01/12/19 07:19 Hep B Core IgM Ab Negative (NEGATIVE) 01/12/19 07:19 Hepatitis C Antibody Reactive (NEGATIVE) 01/12/19 07:19 HIV 1&2 Antibody Screen Negative (NEGATIVE) 01/12/19 07:19 Discharge Exam - Head Exam Head Exam: ATRAUMATIC, NORMAL INSPECTION, NORMOCEPHALIC - Eye Exam Eye Exam: EOMI, Normal appearance, PERRL Pupil Exam: NORMAL ACCOMODATION, PERRL - Respiratory Exam Respiratory Exam: Decreased Breath Sounds - Cardiovascular Exam Cardiovascular Exam: REGULAR RHYTHM, +S1, +S2 - GI/Abdominal Exam GI & Abdominal Exam: Diminished Bowel Sounds, Soft - Rectal Exam Rectal Exam: Deferred - Neurological Exam Neurological exam: Oriented x3 Discharge Plan - Discharge Medications Prescriptions: Cefadroxil 500 mg PO BID 7 Days traMADol [Ultram] 50 mg PO Q6 PRN #40 tab PRN Reason: Pain, Moderate (4-7) - Follow Up Plan Condition: STABLE Disposition: HOME/ ROUTINE Instructions: Cellulitis (Skin Infection), Adult (DC), Cefadroxil, Tramadol Referrals: Farzad Rodriguez MD [Staff Provider] -
[2019-01-14] MEDS ORDERED: Pantoprazole 40 mg EC Tab PO SCH (10:00)
== END 2019-01-13 14:44 | disposition home or self-care (01) | DRG 253 ==
LOC: C.ER 10:18 → C.9E 12:11 → C.ER 12:31 → C.3T 12:56
PROVIDERS: ADMIT Internal Medicine Critical Care Medicine; ATTEND Internal Medicine Critical Care Medicine
PROC: 0HRLX74 Replacement of Left Lower Leg Skin with Autologous Tissue Substitute, Partial Thickness, External Approach (ICD-10-PCS; 2019-01-09)
PROC: 06BY0ZZ Excision of Lower Vein, Open Approach (ICD-10-PCS; 2019-01-09)
PROC: 069 Lower Veins, Drainage (ICD-10-PCS; principal; 2019-01-09 12:00)
PROC: 06QY0ZZ Repair Lower Vein, Open Approach (ICD-10-PCS; 2019-01-10)
PROC: 0HRLX74 Replacement of Left Lower Leg Skin with Autologous Tissue Substitute, Partial Thickness, External Approach (ICD-10-PCS; 2019-01-10)
PROC: 0H9LXZZ Drainage of Left Lower Leg Skin, External Approach (ICD-10-PCS; 2019-01-10)
PROC: 0HDLXZZ Extraction of Left Lower Leg Skin, External Approach (ICD-10-PCS; 2019-01-11)
PROC: 0H9LXZZ Drainage of Left Lower Leg Skin, External Approach (ICD-10-PCS; 2019-01-11)
PROC: 0HQLXZZ Repair Left Lower Leg Skin, External Approach (ICD-10-PCS; 2019-01-11)
DX: I80.3 Phlebitis and thrombophlebitis of lower extremities, unspecified (principal); L02.416 Cutaneous abscess of left lower limb; L03.116 Cellulitis of left lower limb; E11.9 Type 2 diabetes mellitus without complications; I10 Essential (primary) hypertension; F17.210 Nicotine dependence, cigarettes, uncomplicated; Z86.19 Personal history of other infectious and parasitic diseases